=== PATIENT | male | born 1985 | race Caucasian/White ===

== ENCOUNTER 2018-11-26 08:11 | Day surgery (SDC) | payer OTHER ==
[2018-11-25 11:57] VITALS: BMI 22.4
[2018-11-26 08:40] VITALS: TEMP 97.6
[2018-11-26] MEDS ORDERED: LIDOCAINE HCL 2% (50ML VIAL) INF ONE (11:05)
[2018-11-26] MEDS ORDERED: BUPIVACAINE HCL/PF 0.25% (2.5MG/ML) 10 ML VIAL IJ ONE (11:06)
[2018-11-26 12:04] VITALS: BP 120/66; PULSE 64
--- NOTE | 2018-11-28 18:17 | PATH ---
Surgical Pathology Report Patient Name: LILO PENNY [facility]. Rec. #: [id number] /Age/Gender: 1985 (Age: 33) / M Account: [id number] Location: [facility] AMBULATORY Taken: 11/26/2018 Received: 11/26/2018 Reported: 11/28/2018 Physicians: Vinnie Harrell M.D. Specimen(s) Received RIGHT INDEX FINGER MASS Clinical History Right index finger mass Final Diagnosis INDEX FINGER MASS, RIGHT, EXCISION: FIBROCONNECTIVE TISSUE WITH FOCAL MYXOID CHANGE COMPATIBLE WITH GANGLION CYST. Electronically Signed Paula Wilson M.D. Gross Description Received in formalin labeled "right index finger mass," is a 0.2 x 0.1 x 0.1 cm brown tissue mass. The specimen is submitted in toto in one cassette. /11/27/201811/27/2018
--- NOTE | 2018-11-30 13:57 | OP ---
DATE OF OPERATION: 11/26/2018 PREOPERATIVE DIAGNOSIS: Right index finger mass. POSTOPERATIVE DIAGNOSIS: Right index finger mass. OPERATIVE PROCEDURE: Right index finger mass excision. SURGEON: Vinnie Henson MD ANESTHESIA: Local. COMPLICATIONS: None. ESTIMATED BLOOD LOSS: Minimal. INDICATION FOR PROCEDURE: A 33-year-old male with the above finding indicated for operative treatment. Risks, benefits, alternatives were discussed with the patient at length. Proper informed consent was obtained. PROCEDURE: After proper identification of the patient and correct operative site, the patient brought to the operating room and placed supine on the table with prominences well-padded. Local anesthesia was given with 2% lidocaine and the right upper extremity was prepped and draped in the usual sterile fashion. Finger tourniquet was used. An oblique incision was made over the mass, which was at the PIP joint. The incision was taken sharply through the skin with blunt and sharp dissection of the subcutaneous tissues. Mass was found to be an organized thrombus. This was excised in whole and sent for pathologic evaluation. The wound was repaired with 5-0 fast-absorbing plain gut suture as well as Dermabond. Sterile dressings were applied. The patient was brought to the recovery room in stable condition. He tolerated the procedure well. VINNIE HENSON M.D. BLAKE/[id number]
== END 2018-11-26 12:06 | disposition home or self-care (01) ==
LOC: FASU 08:11
PROVIDERS: ATTEND Orthopaedic Surgery Hand Surgery
PROC: 0LB70ZZ Excision of Right Hand Tendon, Open Approach (ICD-10-PCS; principal; 2018-11-26 11:02)
DX: M67.441 Ganglion, right hand (principal)
CPT/HCPCS: 88304-TC